=== PATIENT | female | born 1950 | race Caucasian/White ===

== ENCOUNTER → 2024-07-18 | Outpatient (REF) | payer MEDICARE, OTHER ==
[2024-07-18 18:07] LABS: TOTAL PROTEIN,RANDOM URINE 6.2 MG/DL (0.0-14.0)
[2024-07-18 18:11] LABS: CREATININE,RANDOM URINE 145.2 MG/DL
[2024-07-20 04:28] LABS: PROTEIN, TOTAL SO 7.2 g/dL (6.1-8.1)
== END ==
LOC: M LAB REF 16:58
PROVIDERS: ATTEND Internal Medicine Nephrology
DX: N18.32 Chronic kidney disease, stage 3b (principal)